=== PATIENT | male | born 1940 | race Caucasian/White ===

== ENCOUNTER 2020-02-11 16:08 | Emergency (ER) | payer OTHER ==
--- NOTE | 2020-02-11 16:29 | PDOC ---
Rapid Medical Evaluation Time Seen by Provider: 02/11/20 16:27 Medical Evaluation: Allergies Allergy/AdvReac Type Severity Reaction Status Date / Time No Known Drug Allergies Allergy Verified 10/24/18 10:27 02/11/20 16:28 CC: lscp x 3-4 days intermittent sharp discomfort, no sob, no dizziness Exam: vss, no reproducible cp Plan: ekg, labs cxr Discharge Disposition - Diagnosis Chest pain - Referrals - Patient Instructions - Post Discharge Activity
[2020-02-11 16:31] VITALS: BMI 23.1
--- NOTE | 2020-02-11 17:53 | PDOC ---
Documentation entered by Manisha Solo SCRIBE, acting as scribe for Carine Reese MD. Carine Reese MD: This documentation has been prepared by the Edil sanderson Brenda, SCRIBE, under my direction and personally reviewed by me in its entirety. I confirm that the documentation accurately reflects all work, treatment, procedures, and medical decision making performed by me. Attending Attestation - Resident Resident Name: Alejandra Laguerre - ED Attending Attestation I have performed the following: I have examined & evaluated the patient, The case was reviewed & discussed with the resident, I agree w/resident's findings & plan, Exceptions are as noted - HPI HPI: 02/11/20 17:18 The patient is a 79 year old male with a significant PMH of HTN, HLD who presents to the emergency department with left-sided chest pain for the past 3-4 days. The patient notes that his chest pain is intermittent, lasting 2-3 minutes per episode with about 2 episodes per bailey. Patient notes that it is non- radiating. The patient denies shortness of breath, headache and dizziness. Denies fever, chills, nausea, vomiting, diarrhea and constipation. Denies dysuria, frequency, urgency and hematuria. Allergies: NKA Past surgical history: Social history: 5 Cigarettes a day PCP: Dr. Wilcox in [facility] - Physicial Exam PE: 02/11/20 17:38 GENERAL: Well-appearing, well-nourished. No apparent distress. HEENT: Normocephalic, atraumatic. PERRL, EOM intact. CARDIOVASCULAR: Normal S1, S2. Regular rate and rhythm. PULMONARY: Clear to auscultation bilaterally. ABDOMEN: Soft, non-distended, non-tender. EXTREMITIES: Normal ROM in all four extremities. No gross deformities. SKIN: Warm, dry. No rash NEUROLOGICAL: No focal neurological deficits. - Medical Decision Making 02/11/20 18:19 pt was sent for left sided chest pain that has currently resolved 02/11/20 18:20 labs reviewed /negative troponin/chemistries are unremarkable 02/11/20 18:30 plan OBS telemetry admit Discharge - Discharge Information Problems reviewed: Yes Clinical Impression/Diagnosis: Chest pain - Follow up/Referral - Patient Discharge Instructions - Post Discharge Activity
[2020-02-11 18:00] LABS: BASO % 1.2 % (0-2.0); EOS % 2.5 % (0-4.5); HEMATOCRIT 37.1 % (35.4-49); HEMOGLOBIN 12.3 GM/dL (11.7-16.9); LYMPH % 23.3 % (8-40); MCH 25.6 pg (25.7-33.7); MCHC 33.2 g/dl (32.0-35.9); MEAN CELL VOLUME 77.3 fl (80-96); MONO % 7.7 % (3.8-10.2); NEUT % 65.3 % (42.8-82.8); PLATELET COUNT 193 K/MM3 (134-434); RDW 15.6 % (11.9-15.9); WHITE BLOOD COUNT 10.2 K/mm3 (4.0-10.0)
[2020-02-11 18:11] LABS: INR 0.96 (0.83-1.09); PROTHROMBIN TIME (PATIENT) 11.3 SEC (9.7-13.0)
[2020-02-11 18:19] LABS: ALBUMIN 3.7 g/dl (3.4-5.0); ALK PHOS 75 U/L (45-117); ANION GAP 8 MMOL/L (8-16); BILIRUBIN,TOTAL 0.3 mg/dL (0.2-1); BLOOD UREA NITROGEN 15.8 mg/dL (7-18); CALCIUM 8.6 mg/dL (8.5-10.1); CHLORIDE 107 mmol/L (98-107); CO2 25 mmol/L (21-32); CREATININE 0.8 mg/dL (0.55-1.3); GLUCOSE,RANDOM 81 mg/dL (74-106); POTASSIUM 3.9 mmol/L (3.5-5.1); SGOT/AST 20 U/L (15-37); SGPT/ALT 26 U/L (13-61); SODIUM 140 mmol/L (136-145); TOT PROT 6.8 g/dl (6.4-8.2)
--- NOTE | 2020-02-11 18:41 | PDOC ---
History of Present Illness - General Chief Complaint: Chest Pain Stated Complaint: CHEST PAIN Time Seen by Provider: 02/11/20 16:27 - History of Present Illness Initial Comments: Pt is a 79 M with PMH HTN, HLD who presents for chest pain. Pain located at left lateral chest, non radiating, 4/10 at worst, 0/10 currently; reports an episode earlier today at PCP office where he was told to come to ED. Reports another 2 second episode while he was in ED. States he has 1-2 episodes over the last 3-4 days, that last about 2-3 minutes per episode. Pain is nonexertional, nonradiating, nonpleuritic, nonpositional. States that he took Xanax which improved CP. Denies any other aggravating or relieving factors. Denies n/v, diaphoresis, SOB, dizziness, weakness, f/c. PCP: Elina Wilcox PMH: HTN, HLD PSHx: hernia repair, AAA repair, endarterectomy Meds: Losartan, rosuvastatin, ASA, amlodipine, HCTZ, metoprolol aLL: Denies Social: denies any family history of [place] Vernell Espinoza [place]: [phone] Review of Systems CONSTITUTIONAL:denies fever, chills, diaphoresis, generalized weakness, malaise, loss of appetite HEENT:denies rhinorrhea, nasal congestion, sore throat, ear pain, eye pain, visual Changes CARDIOVASCULAR:reports chest pain; denies syncope, palpitations, irregular heart rate, lightheadedness, peripheral edema RESPIRATORY:denies cough, shortness of breath, dyspnea with exertion, orthopnea, wheezing, hemoptysis GASTROINTESTINAL: denies abdominal pain, abdominal distension, nausea, vomiting, diarrhea, constipation, melena, hematochezia GENITOURINARY:denies dysuria, frequency, urgency, hematuria MUSCULOSKELETAL:denies myalgia, arthralgia, neck pain, back pain HEMATOLOGIC/IMMUNOLOGIC:denies easy bleeding, easy bruising ENDOCRINE: denies unexplained weight gain, unexplained weight loss NEUROLOGIC:denies headache, loss of consciousness, focal weakness or paresthesias, dizziness, unsteady gait, mental status changes, bladder or bowel incontinence SKIN:denies rash, itching, pallor PSYCHIATRIC:reports anxiety Physical Exam General: awake, alert, fully oriented, in no acute distress, well developed, well nourished Head: normocephalic, atraumatic Eyes: PERRL, EOMI, anicteric sclera, conjunctiva clear ENT: hard of hearing, oropharynx clear without exudates. Moist mucous membranes Lung: equal breath sounds b/l, CTA b/l, no crackles, wheezes; no distress, speaks full sentences Heart: RRR, normal S1, S2, no murmurs, rubs, gallops Abdomen: soft, non tender, normoactive bowel sounds, no guarding, rebound, masses Extremities: normal ROM, no edema, no erythema or tenderness, DP/PT pulses 2+ and symmetric, no clubbing, cyanosis Neuro: CN2-12 grossly intact, moves all extremities, normal speech, normal gait - uses a cane, sensation intact Skin: warm, dry, no rashes or lesions noted Past History - Medical History Allergies/Adverse Reactions: Allergies Allergy/AdvReac Type Severity Reaction Status Date / Time No Known Drug Allergies Allergy Verified 10/24/18 10:27 Home Medications: Ambulatory Orders Aspirin [ASA -] 81 mg PO DAILY 05/15/13 Metoprolol Succinate [Toprol XL -] 25 mg PO DAILY 05/15/13 Rosuvastatin Calcium [Crestor] 20 mg PO HS 05/15/13 Amlodipine Besylate [Norvasc -] 5 mg PO DAILY #0 tablet 05/16/13 Tamsulosin HCl [Flomax] 0.4 mg PO DAILY #7 capsule 05/04/14 Anemia: No Asthma: No Cancer: No Cardiac Disorders: No CVA: No COPD: No CHF: No Dementia: No Diabetes: No GI Disorders: No Disorders: No HTN: Yes Hypercholesterolemia: Yes Liver Disease: No Seizures: No Thyroid Disease: No - Surgical History Abdominal Surgery: Yes (HERNIA REPAIR 02/2012 AND 2007) Appendectomy: No Cardiac Surgery: Yes (endarterectomy) Cholecystectomy: No Lung Surgery: No Neurologic Surgery: No Orthopedic Surgery: No - Immunization History Td Vaccination: Yes TDAP Vaccination: Yes Immunization Up to Date: Yes - Psycho-Social/Smoking History Smoking Status: Yes Smoking History: Never smoked Have you smoked in the past 12 months: No Number of Cigarettes Smoked Daily: 0 If you are a former smoker, when did you quit?: 10/20/12 'Breaking Loose' booklet given: 10/23/12 - Substance Abuse Hx (Audit-C & DAST Scrn) How often the patient has a drink containing alcohol: Never Score: In Men: 4 or > Positive; In Women: 3 or > Positive: 0 Screen Result (Pos requires Nsg. Audit-10AR): Negative In the last yr the pt used illegal drug/Rx for NonMed reason: No Score: Yes response is considered Positive: 0 Screen Result (Positive result requires Nsg. DAST-10): Negative Review of Systems - Review of Systems Able to Perform ROS?: Yes *Physical Exam - Vital Signs Last Vital Signs Temp Pulse Resp BP Pulse Ox 97.5 F L 61 15 129/55 L 98 02/11/20 16:28 02/11/20 16:28 02/11/20 16:28 02/11/20 16:28 02/11/20 16:28 Heart Score/ECG Review - History History: Slightly suspicious - Electrocardiogram EKG: Normal - Age Age: >/= 65 - Risk Factors Risk Factors Heart Score: Yes Hx Hypercholesterolemia, Yes Hx Hypertension, Yes Smoking History Based on the list above the patient has:: >/=3 risk factors or Hx athe rosclerotic disease - Troponin Troponin: </= normal limit - Score Heart Score - Total: 4 ED Treatment Course - LABORATORY CBC & Chemistry Diagram: 02/11/20 16:56 02/11/20 16:56 Medical Decision Making - Medical Decision Making Pt is a 79yo M with HTN HLD who presents with chest pain. Vital Signs Period Temp Pulse Resp BP Sys/Shearer Pulse Ox Last 24 Hr 97.5 F 61 15 129/55 98 DDx: ACS, pericarditis, pericardial effusion, MSK injury Plan: labs, EKG, CXR EKG: HR 68, normal sinus rhythm, MO 156ms, QRS 86ms, QTc 416ms, no ST changes HEART score = 4 CXR: no acute chest pathology Laboratory Tests 02/11/20 02/11/20 02/11/20 16:56 16:56 16:56 WBC 10.2 H RBC 4.80 Hgb 12.3 Hct 37.1 D MCV 77.3 L MCH 25.6 L MCHC 33.2 RDW 15.6 Plt Count 193 MPV 10.0 D Absolute Neuts (auto) 6.7 Neutrophils % 65.3 Lymphocytes % 23.3 Monocytes % 7.7 Eosinophils % 2.5 Basophils % 1.2 Nucleated RBC % 0 PT with INR 11.30 INR 0.96 Sodium 140 Potassium 3.9 Chloride 107 Carbon Dioxide 25 Anion Gap 8 BUN 15.8 Creatinine 0.8 Est GFR (CKD-EPI)AfAm 98.47 Est GFR (CKD-EPI)NonAf 84.96 Random Glucose 81 Calcium 8.6 Total Bilirubin 0.3 AST 20 ALT 26 Alkaline Phosphatase 75 Creatine Kinase 114 Troponin I < 0.02 Total Protein 6.8 Albumin 3.7 Labs: slight leukocytosis, no anemia, electrolytes WNL, no SHARONA, troponin WNL Pt denies chest pain entirety of ED stay. Given Heart score and cardiovascular history, discussed admission with patient who agreed to plan. Patient d/w Dr. Nj, who accepted care of patient. Admitting Dr. Mccoy Disposition Admit to tele obs Discharge - Discharge Information Problems reviewed: Yes Clinical Impression/Diagnosis: Chest pain Qualifiers: Chest pain type: unspecified Qualified Code(s): R07.9 - Chest pain, unspecified - Follow up/Referral - Patient Discharge Instructions - Post Discharge Activity
--- NOTE | 2020-02-11 19:30 | PN ---
Teaching Attending Note Name of Resident: Ha Nj ATTENDING PHYSICIAN STATEMENT I saw and evaluated the patient. I reviewed the resident's note and discussed the case with the resident. I agree with the resident's findings and plan as documented. SUBJECTIVE: Patient is a 79 year old man with a PMH of HTN, HLD, BPH, Hernia repair, Carotid endarterectomy, TIA, Kidney stone, AAA repair and Tobacco use who presents for chest pain. Pain located at left lateral chest, non radiating and 4/10 at worst. Reports an episode earlier today at PCP's office where he was told to come to ER. Reports another 2 second episode while he was in the ER. States he has 1-2 episodes over the last 3-4 days, that last about 2-3 minutes per episode. Pain is nonexertional, nonradiating, nonpleuritic and nonpositional. States that he took Xanax which improved chest pain. Denies any other aggravating or relieving factors. Patient denies abdominal pain, headache, palpitations, dizziness, fever, chills, nausea, vomiting, diarrhea, constipation, dysuria, frequency, urgency, melena, hematochezia or hematuria. Denies alcohol or illicit drug use. No sick contacts or recent travels. Has a family history of DM. OBJECTIVE: Alert Vital Signs Period Temp Pulse Resp BP Sys/Shearer Pulse Ox Last 24 Hr 97.5 F 61 15 129/55 98 HEENT: No Jaundice, eye redness or discharge, PERRLA, EOMI. Normocephalic, atraumatic. External ears are normal and hearing is grossly intact. No nasal discharge. Neck: Supple, nontender. No palpable adenopathy or thyromegaly. No JVD Chest: Good effort. Clear to auscultation and percussion. Heart: Regular. No S3, rub or murmur Abdomen: Not distended, soft, nontender and no HSM. No rebound or guarding. Normal bowel sounds. Ext: Peripheral pulses intact. No leg edema. Skin: Warm and dry. No petechiae, rash or ecchymosis. Neuro: Alert. Oriented x3. CN 2-12 grossly intact. Sensation grossly intact in all four extremities and DTR are symmetric. Psych: Appropriate mood and affect. Good insight. Home Medications Medication Instructions Recorded Aspirin [ASA -] 81 mg PO DAILY 05/15/13 Metoprolol Succinate [Toprol XL -] 25 mg PO DAILY 05/15/13 Rosuvastatin Calcium [Crestor] 20 mg PO HS 05/15/13 Amlodipine Besylate [Norvasc -] 5 mg PO DAILY #0 tablet 05/16/13 Tamsulosin HCl [Flomax] 0.4 mg PO DAILY #7 capsule 05/04/14 Abnormal Lab Results 02/11/20 16:56 WBC 10.2 H MCV 77.3 L MCH 25.6 L Current Medications Generic Name Dose Route Start Last Admin Trade Name Jayne PRN Reason Stop Dose Admin Acetaminophen 650 mg 02/11/20 22:51 Tylenol - PO Q4H PRN PAIN LEVEL 6-10 Enoxaparin Sodium 40 mg 02/12/20 10:00 Lovenox - SQ DAILY DANA ASSESSMENT AND PLAN: 1. Chest pain - Now painfree. Etiology unclear. Though he has risk factors for unstable angina, we will get CT angiography of chest/abdomen/pelvis in view of history of AAA repair. No acute abnormality on CXR. EKG shows NSR at 68/minute and QTc 416, T wave inversion in V1 with no significant ST changes. Initial troponin is negative. Will admit to telemetry, trend troponin, get ECHO, TSH, fasting lipids and consult Cardiology. Leukocytosis likely due to stress, but urinalysis is pending. Viral testing for COVID-19 ordered and patient placed on airborne, droplet and contact isolation. Will continue comprehensive care for all of patients comorbid conditions including Flomax for BPH. 2. Tobacco Use Counseled on risks associated with tobacco use. We will provide patient all the necessary assistance to facilitate smoking cessation and prescribe Nicotine patch. 3. Hypertension Will restart suitable outpatient antihypertensive drugs when clinically appropriate. Subsequently, will revise regimen to ensure [id number] excellent BP control. Patient counseled on the injurious effects of uncontrolled hypertension. Nonpharmacologic measures to control hypertension like weight loss, salt restriction and exercise stressed. Importance of adherence to treatment regimen and attainment of normotension emphasized. 4. DVT prophylaxis - Lovenox 40 mg SQ q 24 hours. 5. Advance directives - Full code
[2020-02-11] MEDS ORDERED: FUROSEMIDE 40 MG TABLET (FP) ONE (19:34)
[2020-02-11] MEDS ORDERED: ACETAMINOPHEN 325 MG TABLET (FP) PO PRN (22:51)
[2020-02-12 01:42] LABS: URINE APPEARANCE CLEAR; URINE BILIRUBIN NEGATIVE (NEGATIVE); URINE COLOR YELLOW; URINE GLUCOSE (UA) NEGATIVE (NEGATIVE); URINE KETONE NEGATIVE (NEGATIVE); URINE LEUK ESTERASE NEGATIVE (NEGATIVE); URINE NITRITE NEGATIVE (NEGATIVE); URINE PROTEIN NEGATIVE (NEGATIVE); URINE UROBILINOGEN 0.2 mg/dL (0.2-1.0)
[2020-02-12 03:11] LABS: COCAINE, UR NEGATIVE ng/ml (CUTOFF=300); OPIATES, URI NEGATIVE ng/ml (CUTOFF=300); PHENCYCLIDINE,URINE NEGATIVE ng/ml (CUTOFF=25); URINE AMPHETAMINES NEGATIVE ng/ml (CUTOFF=500); URINE BARBITURATES NEGATIVE ng/ml (CUTOFF=200)
[2020-02-12 03:19] LABS: METHADONE, UR NEGATIVE ng/ml (CUTOFF=300); URINE BENZODIAZEPINES POSITIVE ng/ml (CUTOFF=200)
--- NOTE | 2020-02-12 04:45 | HP ---
CHIEF COMPLAINT: Chest pain PCP: Elina Wilcox HISTORY OF PRESENT ILLNESS: 79 y.o. male PMHx HTN, HLD, hx 3 hernia repairs, AAA repair and an endarterectomy. Sent to the ED due to abnormal EKG at his PCP's office. Patient stated for the past 4 days he has been having a sharp stabbing pain located on the L lateral side of his chest. The pain does not radiate 3/10 intensity and last for 20-30 mins before resolution. Pt stated he took a xanax which improved his pain. He has not noticed anything that makes the pain worse. Prior to these episodes he has never experienced it before. Patient denies dizziness, headache, SOB, diaphoresis, N/V/D, dysuria. ER course was notable for: (1) EKG (2) IV insertion (3) CXR Recent Travel: No PAST MEDICAL HISTORY: HTN, HLD PAST SURGICAL HISTORY: 3 hernia repairs, AAA repair and an endarterectomy Social History: Smokin-5 cigarettes a day since a teenager Alcohol: No Drugs: No Allergies No Known Drug Allergies Allergy (Verified 10/24/18 10:27) HOME MEDICATIONS: Home Medications Medication Instructions Recorded Aspirin [ASA -] 81 mg PO DAILY 05/15/13 Metoprolol Succinate [Toprol XL -] 25 mg PO DAILY 05/15/13 Rosuvastatin Calcium [Crestor] 20 mg PO HS 05/15/13 Amlodipine Besylate [Norvasc -] 5 mg PO DAILY #0 tablet 05/16/13 Tamsulosin HCl [Flomax] 0.4 mg PO DAILY #7 capsule 05/04/14 REVIEW OF SYSTEMS CONSTITUTIONAL: Absent: fever, chills, diaphoresis, generalized weakness, malaise, loss of appetite, weight change HEENT: Absent: rhinorrhea, nasal congestion, throat pain, throat swelling, difficulty swallowing, mouth swelling, ear pain, eye pain, visual changes CARDIOVASCULAR: Chest pain Absent: syncope, palpitations, irregular heart rate, lightheadedness, peripheral edema RESPIRATORY: Absent: cough, shortness of breath, dyspnea with exertion, orthopnea, wheezing, stridor, hemoptysis GASTROINTESTINAL: Absent: abdominal pain, abdominal distension, nausea, vomiting, diarrhea, constipation, melena, hematochezia GENITOURINARY: Absent: dysuria, frequency, urgency, hesitancy, hematuria, flank pain, genital pain MUSCULOSKELETAL: Absent: myalgia, arthralgia, joint swelling, back pain, neck pain SKIN: Absent: rash, itching, pallor HEMATOLOGIC/IMMUNOLOGIC: Absent: easy bleeding, easy bruising, lymphadenopathy, frequent infections ENDOCRINE: Absent: unexplained weight gain, unexplained weight loss, heat intolerance, cold intolerance NEUROLOGIC: Absent: headache, focal weakness or paresthesias, dizziness, unsteady gait, seizure, mental status changes, bladder or bowel incontinence PSYCHIATRIC: Absent: anxiety, depression, suicidal or homicidal ideation, hallucinations. PHYSICAL EXAMINATION Vital Signs - 24 hr 02/11/20 02/11/20 16:28 23:18 Temperature 97.5 F L Pulse Rate 61 Pulse Rate [ 62 Right] Respiratory 15 18 Rate Blood Pressure 129/55 L Blood Pressure 125/68 [Left Arm] O2 Sat by Pulse 98 98 Oximetry (%) GENERAL: Awake, alert, and fully oriented, in no acute distress. HEAD: Normal with no signs of trauma. EYES: Pupils equal, round and reactive to light, extraocular movements intact, sclera anicteric, conjunctiva clear. EARS, NOSE, THROAT: Ears normal, nares patent, oropharynx clear without exudate s. Moist mucous membranes. NECK: No JVD, or masses. LUNGS: Breath sounds equal, bilaterally. No wheezes, and crackles at the bases b/l. No accessory muscle use. HEART: Regular rate and rhythm, normal S1 and S2 without murmur, rub or gallop. ABDOMEN: Soft, nontender, not distended, normoactive bowel sounds, no guarding, no rebound, no masses. MUSCULOSKELETAL: Normal range of motion at all joints. No bony deformities or tenderness. UPPER EXTREMITIES: 2+ pulses, warm, well-perfused. No cyanosis. No peripheral edema. LOWER EXTREMITIES: 2+ pulses, warm, well-perfused. No calf tenderness. No peripheral edema. NEUROLOGICAL: Cranial nerves II-XII intact. Normal speech. PSYCHIATRIC: Cooperative. Good eye contact. Appropriate mood and affect. SKIN: Warm, dry, normal turgor, no rashes or lesions noted Laboratory Results - last 24 hr 02/11/20 02/11/20 02/11/20 16:56 16:56 16:56 WBC 10.2 H RBC 4.80 Hgb 12.3 Hct 37.1 D MCV 77.3 L MCH 25.6 L MCHC 33.2 RDW 15.6 Plt Count 193 MPV 10.0 D Absolute Neuts (auto) 6.7 Neutrophils % 65.3 Lymphocytes % 23.3 Monocytes % 7.7 Eosinophils % 2.5 Basophils % 1.2 Nucleated RBC % 0 PT with INR 11.30 INR 0.96 PTT (Actin FS) Sodium 140 Potassium 3.9 Chloride 107 Carbon Dioxide 25 Anion Gap 8 BUN 15.8 Creatinine 0.8 Est GFR (CKD-EPI)AfAm 98.47 Est GFR (CKD-EPI)NonAf 84.96 Random Glucose 81 Calcium 8.6 Total Bilirubin 0.3 AST 20 ALT 26 Alkaline Phosphatase 75 Creatine Kinase 114 Troponin I < 0.02 Total Protein 6.8 Albumin 3.7 Urine Color Urine Appearance Urine pH Ur Specific Peytona Urine Protein Urine Glucose (UA) Urine Ketones Urine Blood Urine Nitrite Urine Bilirubin Urine Urobilinogen Ur Leukocyte Esterase Opiates Screen Methadone Screen Barbiturate Screen Phencyclidine Screen Ur Amphetamines Screen MDMA (Ecstasy) Screen Benzodiazepines Screen Cocaine Screen U Marijuana (THC) Screen 02/11/20 02/11/20 02/12/20 22:55 22:55 01:36 WBC RBC Hgb Hct MCV MCH MCHC RDW Plt Count MPV Absolute Neuts (auto) Neutrophils % Lymphocytes % Monocytes % Eosinophils % Basophils % Nucleated RBC % PT with INR INR PTT (Actin FS) 28.0 Sodium Potassium Chloride Carbon Dioxide Anion Gap BUN Creatinine Est GFR (CKD-EPI)AfAm Est GFR (CKD-EPI)NonAf Random Glucose Calcium Total Bilirubin AST ALT Alkaline Phosphatase Creatine Kinase Troponin I < 0.02 Total Protein Albumin Urine Color Yellow Urine Appearance Clear Urine pH 7.0 Ur Specific Peytona 1.032 Urine Protein Negative Urine Glucose (UA) Negative Urine Ketones Negative Urine Blood Negative Urine Nitrite Negative Urine Bilirubin Negative Urine Urobilinogen 0.2 Ur Leukocyte Esterase Negative Opiates Screen Methadone Screen Barbiturate Screen Phencyclidine Screen Ur Amphetamines Screen MDMA (Ecstasy) Screen Benzodiazepines Screen Cocaine Screen U Marijuana (THC) Screen 02/12/20 01:40 WBC RBC Hgb Hct MCV MCH MCHC RDW Plt Count MPV Absolute Neuts (auto) Neutrophils % Lymphocytes % Monocytes % Eosinophils % Basophils % Nucleated RBC % PT with INR INR PTT (Actin FS) Sodium Potassium Chloride Carbon Dioxide Anion Gap BUN Creatinine Est GFR (CKD-EPI)AfAm Est GFR (CKD-EPI)NonAf Random Glucose Calcium Total Bilirubin AST ALT Alkaline Phosphatase Creatine Kinase Troponin I Total Protein Albumin Urine Color Urine Appearance Urine pH Ur Specific Peytona Urine Protein Urine Glucose (UA) Urine Ketones Urine Blood Urine Nitrite Urine Bilirubin Urine Urobilinogen Ur Leukocyte Esterase Opiates Screen Negative Methadone Screen Negative Barbiturate Screen Negative Phencyclidine Screen Negative Ur Amphetamines Screen Negative MDMA (Ecstasy) Screen Negative Benzodiazepines Screen Positive A* Cocaine Screen Negative U Marijuana (THC) Screen Negative ASSESSMENT/PLAN: 79 y.o. male PMHx HTN, HLD, hx 3 hernia repairs, AAA repair and an en darterectomy. Sent to the ED due to abnormal EKG and chest pain while at his PCP's office. # Chest Pain - Secondary to unstable angina - New onset chest pain, No EKG changes, No + biomarkers - Trops (-), will continue to trend - Routine EKG ordered - U-tox r/o substance abuse - Admission to tele obs - CT carol abdomen/pelvis # HTN - BP 129/55, map 79 - Toprol 25mg - Norvasc 5mg # HLD - Crestor 20mg # Leukocytosis - Monitor fevers - Repeat cbc in the morning - UA ordered # Covid r/o - Covid PCR Ordered - PCR ordered due to geographic location of pandemic - Placed in isolation precautions # FEN - Sodium controlled diet - Encourage oral hydration # DVT Prophylaxis - Lovenox 40mg SQ daily # Dispo - Patient admitted to tele obs; will continue to monitor labs and vitals Visit type - Medication Review Med list reviewed for High Risk Meds patients 65 and older: Yes - Emergency Visit Emergency Visit: Yes ED Registration Date: 02/11/20 Care time: The patient presented to the Emergency Department on the above date and was hospitalized for further evaluation of their emergent condition. - New Patient This patient is new to me today: No - Critical Care Critical Care patient: Yes Total Critical Care Time (in minutes): 45 Critical Care Statement: The care of this patient involved high complexity decision making to prevent further life threatening deterioration of the patient's condition and/or to evaluate & treat vital organ system(s) failure or risk of failure. ATTENDING PHYSICIAN STATEMENT I saw and evaluated the patient. I reviewed the resident's note and discussed the case with the resident. I agree with the resident's findings and plan as documented. SUBJECTIVE: OBJECTIVE: ASSESSMENT AND PLAN:
[2020-02-12 06:25] VITALS: BP 130/63; PULSE 67; TEMP 98.3
[2020-02-12 06:58] LABS: BASO % 0.9 % (0-2.0); EOS % 2.6 % (0-4.5); HEMOGLOBIN 12.5 GM/dL (11.7-16.9); LYMPH % 21.3 % (8-40); MCH 25.3 pg (25.7-33.7); MEAN CELL VOLUME 76.6 fl (80-96); MEAN PLT VOLUME 9.3 fl (7.5-11.1); NEUT % 67.2 % (42.8-82.8); PLATELET COUNT 188 K/MM3 (134-434); RBC 4.95 M/mm3 (4.00-5.60); RDW 15.5 % (11.9-15.9); WHITE BLOOD COUNT 9.6 K/mm3 (4.0-10.0)
[2020-02-12 07:05] LABS: BLOOD UREA NITROGEN 15.9 mg/dL (7-18); CALCIUM 8.4 mg/dL (8.5-10.1); CREATININE 0.8 mg/dL (0.55-1.3); MAGNESIUM 2.3 mg/dL (1.8-2.4); PHOSPHOROUS 3.5 mg/dL (2.5-4.9)
[2020-02-12] MEDS ORDERED: TAMSULOSIN HCL 0.4 MG CAP PO SCH (08:30)
[2020-02-12] MEDS ORDERED: metoPROLOL SUCCINATE 25 MG TAB.SR.24H (FP) PO SCH (10:00)
[2020-02-12] MEDS ORDERED: ENOXAPARIN NA (PORCINE) 40 MG/0.4 ML DISP.SYRIN SQ SCH (10:00)
[2020-02-12] MEDS ORDERED: amLODIPine BESYLATE 5 MG TABLET (FP) PO SCH (10:00)
[2020-02-12] MEDS ORDERED: ASPIRIN 81 MG CHEWABLE TABLETS PO SCH (10:00)
--- NOTE | 2020-02-12 10:44 | EKG ---
Test Reason : Blood Pressure : / mmHG Vent. Rate : 068 BPM Atrial Rate : 068 BPM P-R Int : 156 ms QRS Dur : 086 ms QT Int : 392 ms P-R-T Axes : 052 -11 045 degrees QTc Int : 416 ms NORMAL SINUS RHYTHM NORMAL ECG WHEN COMPARED WITH ECG OF 20-OCT-2015 04:24, NONSPECIFIC T WAVE ABNORMALITY NO LONGER EVIDENT IN INFERIOR LEADS Confirmed by Gerald Kohler ([id number]) on 02/12/2020 10:44:23 AM Referred By: Confirmed By:Gerald Kohler
--- NOTE | 2020-02-12 11:36 | DS ---
Physical Exam: SUBJECTIVE: Patient seen this morning, He wanted to go home. Risks of leaving explained to patient and he understood, but still wanted to go home. Patient left AMA. LABS Laboratory Results - last 24 hr 02/11/20 02/11/20 02/11/20 16:56 16:56 16:56 WBC 10.2 H RBC 4.80 Hgb 12.3 Hct 37.1 D MCV 77.3 L MCH 25.6 L MCHC 33.2 RDW 15.6 Plt Count 193 MPV 10.0 D Absolute Neuts (auto) 6.7 Neutrophils % 65.3 Lymphocytes % 23.3 Monocytes % 7.7 Eosinophils % 2.5 Basophils % 1.2 Nucleated RBC % 0 PT with INR 11.30 INR 0.96 PTT (Actin FS) Sodium 140 Potassium 3.9 Chloride 107 Carbon Dioxide 25 Anion Gap 8 BUN 15.8 Creatinine 0.8 Est GFR (CKD-EPI)AfAm 98.47 Est GFR (CKD-EPI)NonAf 84.96 Random Glucose 81 Calcium 8.6 Phosphorus Magnesium Total Bilirubin 0.3 AST 20 ALT 26 Alkaline Phosphatase 75 Creatine Kinase 114 Troponin I < 0.02 Total Protein 6.8 Albumin 3.7 Urine Color Urine Appearance Urine pH Ur Specific [place] Urine Protein Urine Glucose (UA) Urine Ketones Urine Blood Urine Nitrite Urine Bilirubin Urine Urobilinogen Ur Leukocyte Esterase Opiates Screen Methadone Screen Barbiturate Screen Phencyclidine Screen Ur Amphetamines Screen MDMA (Ecstasy) Screen Benzodiazepines Screen Cocaine Screen U Marijuana (THC) Screen 02/11/20 02/11/20 02/12/20 22:55 22:55 01:36 WBC RBC Hgb Hct MCV MCH MCHC RDW Plt Count MPV Absolute Neuts (auto) Neutrophils % Lymphocytes % Monocytes % Eosinophils % Basophils % Nucleated RBC % PT with INR INR PTT (Actin FS) 28.0 Sodium Potassium Chloride Carbon Dioxide Anion Gap BUN Creatinine Est GFR (CKD-EPI)AfAm Est GFR (CKD-EPI)NonAf Random Glucose Calcium Phosphorus Magnesium Total Bilirubin AST ALT Alkaline Phosphatase Creatine Kinase Troponin I < 0.02 Total Protein Albumin Urine Color Yellow Urine Appearance Clear Urine pH 7.0 Ur Specific [place] 1.032 Urine Protein Negative Urine Glucose (UA) Negative Urine Ketones Negative Urine Blood Negative Urine Nitrite Negative Urine Bilirubin Negative Urine Urobilinogen 0.2 Ur Leukocyte Esterase Negative Opiates Screen Methadone Screen Barbiturate Screen Phencyclidine Screen Ur Amphetamines Screen MDMA (Ecstasy) Screen Benzodiazepines Screen Cocaine Screen U Marijuana (THC) Screen 02/12/20 02/12/20 02/12/20 01:40 05:50 05:50 WBC 9.6 RBC 4.95 Hgb 12.5 Hct 38.0 MCV 76.6 L MCH 25.3 L MCHC 33.0 RDW 15.5 Plt Count 188 MPV 9.3 Absolute Neuts (auto) 6.5 Neutrophils % 67.2 Lymphocytes % 21.3 Monocytes % 8.0 Eosinophils % 2.6 Basophils % 0.9 Nucleated RBC % 0 PT with INR INR PTT (Actin FS) Sodium 142 Potassium 4.0 Chloride 108 H Carbon Dioxide 27 Anion Gap 8 BUN 15.9 Creatinine 0.8 Est GFR (CKD-EPI)AfAm 98.47 Est GFR (CKD-EPI)NonAf 84.96 Random Glucose 81 Calcium 8.4 L Phosphorus 3.5 Magnesium 2.3 Total Bilirubin AST ALT Alkaline Phosphatase Creatine Kinase Troponin I Total Protein Albumin Urine Color Urine Appearance Urine pH Ur Specific [place] Urine Protein Urine Glucose (UA) Urine Ketones Urine Blood Urine Nitrite Urine Bilirubin Urine Urobilinogen Ur Leukocyte Esterase Opiates Screen Negative Methadone Screen Negative Barbiturate Screen Negative Phencyclidine Screen Negative Ur Amphetamines Screen Negative MDMA (Ecstasy) Screen Negative Benzodiazepines Screen Positive A* Cocaine Screen Negative U Marijuana (THC) Screen Negative HOSPITAL COURSE: Date of Admission:02/11/20 Date of Discharge: 02/12/20 Patient is a 79 y.o. male PMHx HTN, HLD, hx 3 hernia repairs, AAA repair and an endarterectomy, presented to the ED due to abnormal EKG and chest pain while at his PCP's office. Patient was admitted for further work up of chest pain. Trop negative x 2, EKG with no acute ST-T wave changes. Chest/Abdominal CTA done which showed interval increased size in infraadbominal aortic aneurysm from 4-5 cm. Patient was advised further evaluation of the vascular surgery and cardiology, but he wanted to go home. Patient understood the risks of leaving against medical advise, but is persistent of going home. Patient signed AMA. Minutes to complete discharge: 37 Discharge Summary Problems reviewed: Yes Reason For Visit: CHEST PAIN - Instructions Disposition: AGAINST MEDICAL ADVICE - Home Medications Comprehensive Discharge Medication List: Ambulatory Orders Aspirin [ASA -] 81 mg PO DAILY 05/15/13 Metoprolol Succinate [Toprol XL -] 25 mg PO DAILY 05/15/13 Rosuvastatin Calcium [Crestor] 20 mg PO HS 05/15/13 Amlodipine Besylate [Norvasc -] 5 mg PO DAILY #0 tablet 05/16/13 Tamsulosin HCl [Flomax] 0.4 mg PO DAILY #7 capsule 05/04/14 This patient is new to me today: Yes Date on this admission: 02/12/20 Emergency Visit: Yes ED Registration Date: 02/11/20 Care time: The patient presented to the Emergency Department on the above date and was hospitalized for further evaluation of their emergent condition. Critical Care patient: No - Discharge Referral Referred to [facility] No ATTENDING PHYSICIAN STATEMENT I saw and evaluated the patient. I reviewed the resident's note and discussed the case with the resident. I agree with the resident's findings and plan as documented. SUBJECTIVE: OBJECTIVE: ASSESSMENT AND PLAN:
[2020-02-12] MEDS ORDERED: ROSUVASTATIN CA 20 MG TABLET (FP) PO SCH (22:00)
--- NOTE | 2020-02-13 11:59 | PN ---
Teaching Attending Note Name of Resident: Juanita Andrade ATTENDING PHYSICIAN STATEMENT PT left ems instructor AMA, I haven't had the chance to see the patient. Resident went in and spoke with him about risks of his behavior and implications of leaving against medical advice. Pt elected to sign AMA.
== END 2020-02-12 10:14 | disposition left against medical advice (07) ==
LOC: JER 16:08 → JERBED 19:48
PROVIDERS: ADMIT Internal Medicine; ATTEND Student in an Organized Health Care Education/Training Program
DX: R07.9 Chest pain, unspecified (principal); I10 Essential (primary) hypertension; E78.5 Hyperlipidemia, unspecified; F17.210 Nicotine dependence, cigarettes, uncomplicated
CPT/HCPCS: 36415; 71045-TC-FY; 71275-TC; 74175-TC; 80048; 80053; 80307; 81003; 82550; 83735; 84100; 84484; 85025; 85610; 85730; 93005; 93010; 99285-25; G0378